=== PATIENT | female | born 1980 | race Hispanic/Latino ===

== ENCOUNTER 2020-03-29 07:41 | Outpatient (CLI) | payer OTHER ==
--- NOTE | 2020-03-29 13:06 | HP ---
Scheduled date of surgery 04/03/2020. HISTORY OF PRESENT ILLNESS: Ms. Mao is a 39-year-old female, Mahendra, who was referred by the [facility] in [place], [place] for very large pelvic mass. She has been having pelvic and abdominal pain and heavy menstrual flow. She is noted to have a very large uterine fibroid measuring 13 x 12 x 12 cm occupying her uterus. She has no other symptomatology. PAST MEDICAL HISTORY: Otherwise negative. PAST SURGICAL HISTORY: Negative. ALLERGIES: NO KNOWN DRUG ALLERGIES. SOCIAL HISTORY: Nonsmoker and nondrinker. 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 CURRENT MEDICATIONS: Ibuprofen as needed. PHYSICAL EXAMINATION: VITAL SIGNS: Her height 5 feet 7 inches, weight 274 pounds, BMI 42.9, blood pressure 116/70, pulse 78, respirations 18, and O2 saturation on room air is 99%. HEENT: Within normal limits. CHEST: Clear to auscultation. HEART: Regular rate and rhythm. S1, S2 heart sounds. No murmurs, rubs, or gallops. ABDOMEN: No tenderness or guarding. She has a very large uterine mass, approximately 32-week size and firm. Pelvic exam confirmed findings. Transabdominal ultrasound confirmed a large mass consistent with uterine leiomyoma. ASSESSMENT: This is a 39-year-old female, G0 with a large uterine fibroid, 32-week size with pelvic pain and abdominal discomfort and heavy flow. PLAN: Plan is to proceed with total abdominal hysterectomy with bilateral salpingectomy. Risks and benefits of the procedure discussed in detail, set for surgery on 04/03/2020. Job ID: [id number]
[2020-03-29 15:01] LABS: BHCG - Serum Negative (NEGATIVE); Pregs Control Background? CLEAR/WHITE (CLR/WHITE); Pregs Control Bar Appear? YES (CONTROL BAR)
[2020-03-29 15:06] LABS: Hemoglobin 13.7 g/dL (12.0-16.0); Mean Corpuscular HGB CONC 36.6 g/dL (32.0-36.0); Mean Corpuscular Hemoglobin 30.6 pg (27.0-31.0); Mean Corpuscular Volume 83.6 fL (78.0-98.0); Mean Platelet Volume 9.6 fL (7.4-10.4); Platelet Count 339 thou/uL (130-400); Red Blood Cell (RBC) Count 4.48 mill/uL (4.20-5.40); White Blood Cell (WBC) Count 14.3 thou/uL (4.8-10.8)
[2020-03-30 12:26] LABS: SARS-CoV-2 MS2 Positive; SARS-CoV-2 N Gene Negative; SARS-CoV-2 S Gene Negative; SARS-CoV-2 by NAA Not Detected (NotDetected); SARS-CoV-2 orf1ab Negative
== END 2020-03-29 07:42 | disposition home or self-care (01) ==
LOC: LABBT 07:41
PROVIDERS: ATTEND Obstetrics & Gynecology
DX: Z01.812 Encounter for preprocedural laboratory examination (principal); Z20.828 Contact with and (suspected) exposure to other viral communicable diseases; D25.9 Leiomyoma of uterus, unspecified; R10.2 Pelvic and perineal pain; N92.0 Excessive and frequent menstruation with regular cycle
CPT/HCPCS: 84703; 85027; 87635; U0003

== ENCOUNTER 2020-03-29 13:00 | Inpatient (IN) | payer OTHER ==
[2020-03-29 11:01] VITALS: BMI 34.4
[2020-04-03] MEDS ORDERED: PROPOFOL 200 MG/20 ML VIAL ONE (09:28)
[2020-04-03] MEDS ORDERED: Dexamethasone 20 MG/5 ML VIAL ONE (09:28)
[2020-04-03] MEDS ORDERED: Ondansetron PF 4 MG/2 ML Vial ONE (09:28)
[2020-04-03] MEDS ORDERED: Lidocaine 1% PF 5 ML VIAL ONE (09:28)
[2020-04-03] MEDS ORDERED: Glycopyrrolate 0.2 MG/ML 5 ML SYRINGE ONE (09:28)
[2020-04-03] MEDS ORDERED: Rocuronium Bromide 10 MG/ML (10ML VIAL) ONE (09:28)
[2020-04-03] MEDS ORDERED: Gabapentin 300 MG CAP ONE (11:20)
[2020-04-03] MEDS ORDERED: Famotidine/PF 20 mg/2ml Vial ONE (11:20)
[2020-04-03] MEDS ORDERED: CeleCOXIB 100 MG CAP ONE (11:20)
[2020-04-03] MEDS ORDERED: Fentanyl 250 MCG/5 ML VIAL ONE (11:54)
[2020-04-03] MEDS ORDERED: Midazolam HCl 2 mg/2 ml Vial ONE (12:17)
[2020-04-03] MEDS ORDERED: SUGAMMADEX SODIUM 200 MG/2 ML VIAL ONE (12:45)
[2020-04-03] MEDS ORDERED: Meperidine HCl/PF 25 MG/ML VIAL SLOW IVP PRN (13:39)
[2020-04-03] MEDS ORDERED: Promethazine HCl 25 MG/ML VIAL SLOW IVP PRN (13:39)
[2020-04-03] MEDS ORDERED: Ondansetron HCl/PF 4 MG/2 ML Vial IVP PRN (13:39)
[2020-04-03] MEDS ORDERED: Promethazine HCl 25 MG/ML VIAL IM PRN ×2 (13:39→14:47)
[2020-04-03] MEDS ORDERED: Ropivacaine HCl/PF 750 ML in Premix Bag 1 BAG NERVE BLCK SCH (14:00)
[2020-04-03] MEDS ORDERED: Ropivacaine 0.2% 550 ML 750 ML NERVE BLCK SCH (14:00)
[2020-04-03] MEDS ORDERED: Bupivacaine PF 0.5% 30 ML VIAL ONE (14:24)
[2020-04-03] MEDS ORDERED: Bisacodyl 10 MG SUPP PR PRN (14:47)
[2020-04-03] MEDS ORDERED: Ondansetron PF 4 MG/2 ML Vial IVP PRN (14:47)
[2020-04-03] MEDS ORDERED: diphenhydrAMINE 25 MG CAP PO PRN (14:47)
[2020-04-03] MEDS ORDERED: HYDROcodone/Acetaminophen 5/325 mg Tablet PO PRN ×2 (14:47)
[2020-04-03] MEDS ORDERED: Morphine 4 MG/ML VIAL SLOW IVP PRN (14:47)
[2020-04-03] MEDS ORDERED: Fentanyl 100 MCG/2 ML VIAL ONE ×3 (15:03→16:02)
[2020-04-03] MEDS ORDERED: Labetalol HCl 100 MG/20 ML VIAL ONE (15:44)
[2020-04-03] MEDS ORDERED: Enalaprilat Dihydrate 1.25 MG/ML VIAL ONE ×2 (15:56→16:17)
[2020-04-03] MEDS ORDERED: NIFEdipine 10 MG CAP PO PRN ×2 (19:24→19:56)
[2020-04-03] MEDS: Ibuprofen 800 MG TAB PO SCH (19:49)
[2020-04-03] MEDS: Sodium Chloride 0.9% 1,000 ML IV SCH ×2 (19:56→22:14)
[2020-04-03] MEDS: Ketorolac Tromethamine 30 MG/ML VIAL IVP SCH (20:00)
[2020-04-03] MEDS ORDERED: Enalaprilat Dihydrate 1.25 MG/ML VIAL SLOW IVP PRN (20:50)
[2020-04-03] MEDS: Lactated Ringer's 1,000 ML IV SCH ×2 (22:05→22:14)
[2020-04-04] MEDS: Ketorolac Tromethamine 30 MG/ML VIAL IVP SCH ×2 (00:36→05:57)
[2020-04-04] MEDS: Ibuprofen 800 MG TAB PO SCH ×2 (05:55→22:45)
[2020-04-04] MEDS: Lactated Ringer's 1,000 ML IV SCH ×3 (05:57→22:49)
[2020-04-04 05:58] LABS: Hemoglobin 10.2 g/dL (12.0-16.0); Mean Corpuscular HGB CONC 35.8 g/dL (32.0-36.0); Mean Corpuscular Hemoglobin 29.8 pg (27.0-31.0); Mean Corpuscular Volume 83.2 fL (78.0-98.0); Mean Platelet Volume 8.7 fL (7.4-10.4); Platelet Count 382 thou/uL (130-400); RBC Distribution Width 18.6 % (11.5-14.5); Red Blood Cell (RBC) Count 3.43 mill/uL (4.20-5.40); White Blood Cell (WBC) Count 16.8 thou/uL (4.8-10.8)
[2020-04-04] MEDS: Sodium Chloride 0.9% 1,000 ML IV SCH ×3 (06:00→22:52)
[2020-04-04] MEDS ORDERED: Lactated Ringer's 500 ML IV SCH (06:15)
[2020-04-04 06:17] LABS: Anion Gap 10 mmol/L (10-20); BUN (Urea Nitrogen) 14 mg/dL (7.0-18.7); Calc. Creatinine Clearance 179 mL/min (70-130); Calcium 7.6 mg/dL (7.8-10.44); Carbon Dioxide 25 mmol/L (22-29); Chloride 104 mmol/L (98-107); Estimated GFR-MDRD Greater than 90; Glucose 113 mg/dL (70-105); Potassium 4.4 mmol/L (3.5-5.1); Sodium 135 mmol/L (136-145)
--- NOTE | 2020-04-04 07:37 | OP ---
DATE OF PROCEDURE: 04/03/2020 PREOPERATIVE DIAGNOSIS: A 39-year-old female, G0 with very large uterine fibroids. POSTOPERATIVE DIAGNOSIS: A 39-year-old female, G0 with very large uterine fibroids. PROCEDURE PERFORMED: Total abdominal hysterectomy with right salpingectomy. [employer]ISH[employer] SURGEON: Damián Wilks DO, MS ANESTHESIA: General endotracheal. ESTIMATED BLOOD LOSS: 200 mL. COMPLICATIONS: None. COUNTS: Correct x2. PATHOLOGY: Large multiple uterine fibroids and remainder of the uterus and cervix and right fallopian tube. FINDINGS: 1. Very large uterine fibroids that basically filled the abdomen just below the xiphoid process. 2. Normal bilateral fallopian tubes and ovaries noted. 3. Clear urine present in Maurice catheter postprocedure. DISPOSITION: Recovery room, stable. DESCRIPTION OF PROCEDURE: The patient previously received informed consent in regard to surgery. She was taken back to the operating room, where she received a general endotracheal anesthetic agent without complications. She was placed in supine position, prepped and draped in usual sterile fashion. Maurice catheter and SCDs had been placed. Due to the size of the uterus, a vertical midline incision which curved around the left side of the umbilicus approximately 4 cm above the supraumbilical region was made. This was carried down to the fascia. Fascia was nicked in midline. Fascial incision was extended superiorly and inferiorly. Peritoneal cavity was then entered, and the peritoneal incision was extended. We were then able to grasp the large uterine fibroids and deliver it through the vertical incision. There was some omentum that was adherent to the upper part of the uterine fibroid, which was taken down and some areas of bleeding of the omentum were noted, and [id number] sutures of 0 Vicryl with pressure were placed. We then amputated off the large fibroids from the upper small uterine fundus of the uterus with Santiago clamps and serial cross clamping and tying off these pedicles until the very large fibroid complex was removed. This then enabled us to place an O'Joey-O'Bell retractor in place after the bowel had been packed with moistened laparotomy sponges. The identifiable right round ligament and left round ligament were then noted. These were suture ligated and then transected medial to this after the cornua had been grasped with . The anterior leaf of the broad ligament was then entered, and the vesicouterine peritoneum was incised, dissecting the bladder flap in usual fashion down past the cervical-vaginal margin, which was palpable. The uterine vessels were then skeletonized bilaterally, and curved Santiago clamps were placed just around the internal cervical os. These were transected and suture ligated with Vicryls in Santiago stitch fashion. Straight Merced clamps were then placed in remainder of the cervical stump bilaterally just up to the vaginal angle. These were transected and suture ligated. Once we had ascertained that we had the bladder far enough down past the vaginal cuff side, the Santiago clamp was then placed bilaterally and in the middle and the cervical stump was then removed with Heavenly sutures. A stitch was then placed in each vaginal cuff angle, and an interrupted [id number] was placed in the middle portion of the vaginal cuff for hemostasis. The pelvis was irrigated and suctioned. All pedicle sites were noted to be hemostatic. The Maurice was draining clear urine, and each ureter was palpated and felt to be below the pedicle sites on palpation. The peritoneum was then brought back together with a running 2-0 Vicryl suture. The On-Q pain pump and trocars were then placed from the superior portion on each side of the incision underneath the fascia just above the muscle bellies. The needles were removed. Then, a looped #1 PDS suture was carried out to close the fascia starting at the superior angle. This was closed in [address] down to the inferior portion of the fascial defect, approximating the fascia well. The catheters of the On-Q pump were then fed through the trumpets of the On-Q device, and then the trumpets were removed. The On-Q catheters were flushed and were noted to be free flowing. The subcutaneous tissue was irrigated and suctioned, and hemostasis was confirmed. The subcutaneous tissue was closed together with 3-0 plain gut suture, and feng were utilized to close the skin. The patient was then awakened from anesthesia, transferred to recovery room in stable condition. Job ID: [id number]
--- NOTE | 2020-04-04 07:59 | PDOC.EVN ---
Event Note - Event Note Event Note: Resting now. Had some elevated BP's post op and during the evening received several doses of iv labetolol and vasotec. Unable to take/swallow pills.No nausea or CVAT... O:117/56 P70...Hct 28.6. Creatinie 0.67... ABDomen is soft. Bandage dry. ON Q pumps in place. A/P: Post op day 1 from [facility] for large uterine fibroids. HTN resolveing. U/o improved. Creatrinine normal. ORAL liquid pain meds ordered.
[2020-04-04] MEDS: Hydrocodone-Acetamin 15 ML UDCUP PO PRN ×2 (08:52→18:35)
[2020-04-04] MEDS: Ibuprofen 100 MG/5 ML UDCUP PO PRN ×3 (09:39→22:43)
[2020-04-04] MEDS: Simethicone Chewable 80 MG TAB PO PRN ×2 (15:02→23:52)
[2020-04-05] MEDS: Sodium Chloride 0.9% 1,000 ML IV SCH ×2 (00:37→15:41)
[2020-04-05] MEDS ORDERED: Lactated Ringer's 500 ML IV SCH ×2 (00:45)
[2020-04-05] MEDS: Lactated Ringer's 1,000 ML IV SCH ×3 (03:30→15:41)
[2020-04-05] MEDS: Hydrocodone-Acetamin 15 ML UDCUP PO PRN ×3 (04:44→18:01)
--- NOTE | 2020-04-05 07:44 | PDOC.EVN ---
Event Note - Event Note Event Note: Tired. Has been urinating all night...Pain better. Denies flatus. No nausea. O:138/79 P81 ABD: soft/+BS. Incision C/D/I A/P: Post op day 2 from large uterine fibroids. Urine output much improved...Pain control better. Awaiting flatus. Probable discharge this PM.
[2020-04-05] MEDS: Ibuprofen 800 MG TAB PO SCH (08:49)
[2020-04-05 11:44] VITALS: TEMP 97.8
[2020-04-05] MEDS: Ibuprofen 100 MG/5 ML UDCUP PO PRN ×2 (13:11→17:16)
[2020-04-05 14:48] VITALS: BP 155/67
== END 2020-04-05 18:25 | disposition home or self-care (01) | DRG 743 ==
LOC: EDSTATUS 13:00 → SURG A 04-03 10:46 → 3SE 04-03 18:41
PROVIDERS: ADMIT Obstetrics & Gynecology; ATTEND Obstetrics & Gynecology
PROC: 0UT90ZZ Resection of Uterus, Open Approach (ICD-10-PCS; principal; 2020-04-03)
PROC: 0UT50ZZ Resection of Right Fallopian Tube, Open Approach (ICD-10-PCS; 2020-04-03)
PROC: 0UBC0ZZ Excision of Cervix, Open Approach (ICD-10-PCS; 2020-04-03)
DX: D25.9 Leiomyoma of uterus, unspecified (principal); N92.0 Excessive and frequent menstruation with regular cycle; I10 Essential (primary) hypertension
CPT/HCPCS: 36415; 80048; 85027; 86850; 86900; 86901; 88307; J0690; J1100; J1885; J2250; J2405; J2704; J3010; S0020; S0028